=== PATIENT | female | born 1995 | race Caucasian/White ===

== ENCOUNTER 2021-10-08 20:12 | Emergency (ER) | payer MEDICARE, OTHER ==
[~2021-10-08] VITALS: Ht 147.3 cm; Wt 55.0 kg
[2021-10-08] MEDS ORDERED: IBUPROFEN 600MG TABLET PO STA (20:27)
[2021-10-08] MEDS ORDERED: BENZ-16 MT (22:01)
[2021-10-08 22:19] VITALS: BP 125/75
== END 2021-10-08 22:21 | disposition home or self-care (01) ==
LOC: ER 20:12
DX: R07.89 Other chest pain (principal); R05.9 Cough, unspecified; Z98.890 Other specified postprocedural states; Z91.041 Radiographic dye allergy status
CPT/HCPCS: 71045; 93005; 99283

== ENCOUNTER 2021-10-12 00:38 | Emergency (ER) | payer MEDICAID, MEDICARE ==
[~2021-10-12] VITALS: Ht 147.3 cm; Wt 54.0 kg
[~2021-10-12 00:38] MED LIST: BENZ-16 MT
[2021-10-12 00:40] VITALS: BP 139/70
[2021-10-12] MEDS ORDERED: ACETAMINOPHEN 325MG TABLET PO STA (01:14)
[2021-10-12 01:45] LABS: BASOPHILS % 1.1 % (0.0-2.0); EOSINOPHILS % 3.5 % (0.0-5.0); HEMATOCRIT. 38.5 % (36.0-48.0); HEMOGLOBIN. 13.4 g/dL (12.0-16.0); LYMPHOCYTES % 33.6 % (20.0-50.0); MEAN CORPUSCULAR HEMOGLOBIN 29.1 pg (28.0-32.0); MEAN CORPUSCULAR VOLUME 83.4 fL (81.0-99.0); MEAN PLATELET VOLUME 7.8 fl (7.4-10.4); NEUTROPHILS % 54.8 % (40.0-76.0); PLATELET 347 x1000/uL (130-400); RED BLOOD CELL COUNT 4.62 mill/uL (4.2-5.4); RED CELL DISTRIBUTION WIDTH 13.5 % (11.6-14.6)
[2021-10-12 01:52] LABS: CHLORIDE 108 mEq/L (98-107)
[2021-10-12] MEDS ORDERED: BENZ-16 MT (05:59)
[2021-10-12] MEDS ORDERED: NAPR-681 PO (05:59)
[2021-10-12] MEDS ORDERED: ALBU18HF2 IH (05:59)
== END 2021-10-12 06:36 | disposition home or self-care (01) ==
LOC: ER 00:46
DX: J20.9 Acute bronchitis, unspecified (principal); R07.89 Other chest pain; J45.909 Unspecified asthma, uncomplicated; Z98.51 Tubal ligation status; Z20.822 Contact with and (suspected) exposure to COVID-19
CPT/HCPCS: 36415; 71045; 80053; 81025; 83880; 84484; 85025; 87426; 93005; 99285

== ENCOUNTER 2021-12-01 10:50 | Emergency (ER) | payer MEDICAID ==
[~2021-12-01] VITALS: Ht 160 cm; Wt 68.0 kg
[~2021-12-01 10:50] MED LIST changes: +ALBU18HF2 IH; +NAPR-681 PO
[2021-12-01 10:54] VITALS: BP 117/80
[2021-12-01] MEDS ORDERED: MED4 MT (14:42)
[2021-12-01] MEDS ORDERED: ALBU18HF2 IH (14:42)
[2021-12-01] MEDS ORDERED: BENZ-16 MT (14:42)
== END 2021-12-01 15:30 | disposition home or self-care (01) ==
LOC: ER 10:50
DX: J45.901 Unspecified asthma with (acute) exacerbation (principal); Z98.51 Tubal ligation status; Z91.041 Radiographic dye allergy status
CPT/HCPCS: 71045; 93005; 99283